=== PATIENT | female | born 1955 | race Caucasian/White ===

== ENCOUNTER 2023-10-21 18:12 | Emergency (ER) | payer OTHER ==
[~2023-10-21] VITALS: Ht 167.6 cm; Wt 89.0 kg
[2023-10-21 18:57] LABS: Basophils # (auto) 0.1 10 ^3/uL (0-0.2); Basophils % (auto) 0.7 % (0.0-2.0); Eosinophils # (auto) 0.1 10 ^3/uL (0-0.8); Eosinophils % (auto) 1.4 % (0.0-7.0); Hematocrit 40.2 % (36.0-46.0); Hemoglobin 13.7 g/dL (12.2-16.2); Lymphocytes # (auto) 3.2 10 ^3/uL (0.4-5.4); Lymphocytes % (auto) 33.2 % (10.0-50.0); Mean Corpuscular Hemoglobin 29.8 pg (28.0-32.0); Mean Corpuscular Volume 87.7 fL (80.0-100.0); Monocytes # (auto) 0.8 10 ^3/uL (0-1.3); Monocytes % (auto) 8.7 % (0.0-12.0); Neutrophils # (auto) 5.3 10 ^3/uL (1.6-8.6); Red Blood Cells 4.58 10^6/uL (4.0-5.20); White Blood Cell 9.5 10^3/uL (4.4-10.8)
[2023-10-21 19:14] LABS: INR 0.99 (0.9-1.15); Prothrombin Time 10.4 sec (9.3-11.8)
[2023-10-21 19:29] LABS: Alanine Aminotransferase 40 U/L (7-40); Albumin 4.1 g/dL (3.2-4.8); Alkaline Phosphatase 57 U/L (46-116); Anion Gap 8 (5-15); Aspartate Aminotransferase 22 U/L (13-40); BUN/Creatinine Ratio 23.5 (10.0-20.0); Bilirubin, Total 0.6 mg/dL (0.2-1.0); Blood Urea Nitrogen 19 mg/dL (9-23); Calcium 9.4 mg/dL (8.5-10.1); Carbon Dioxide 29 mmol/L (20-30); Chloride 94 mmol/L (98-107); Glucose 122 mg/dL (74-106); Potassium 3.7 mmol/L (3.5-5.1); Sodium 131 mmol/L (136-145); Total Protein 6.1 g/dL (5.7-8.2)
[2023-10-21 19:53] LABS: Lipase 23 U/L (12-53); Magnesium 1.9 mg/dL (1.6-2.6)
[2023-10-21 21:33] VITALS: BP 147/63; PULSE 77; RESP 18; TEMP 98.4; O2SAT 98
== END 2023-10-21 21:45 | disposition home or self-care (01) ==
LOC: EDBD 18:12 → ER 18:12
DX: R55 Syncope and collapse (principal); I10 Essential (primary) hypertension; Z85.9 Personal history of malignant neoplasm, unspecified; Z98.890 Other specified postprocedural states; Z88.8 Allergy status to other drugs, medicaments and biological substances
CPT/HCPCS: 36415; 70450; 71045; 80053; 83690; 83735; 84484; 85025; 85610